=== PATIENT | male | born 1945 | race African-American/Black ===

== ENCOUNTER 2016-08-27 18:57 | Inpatient (IN) | payer MEDICARE, OTHER ==
--- NOTE | ~2016-08-27 | CN ---
Consultation Report [facility] [address] [place]. [address] NAME: EMILY NOE : [birth year] STATUS : ADM IN PAT#: [id number] AGE: 70 ADM/REG DATE : 08/27/16 MR#: [id number] REPORT SERV DATE: 08/28/16 DICTATED BY: ROSEY MERA DATE: 08/28/16 REPORT STATUS : Draft TRANSCRIBED BY: MODAlfie DATE: 08/28/16 CONSULTATION DATE OF CONSULTATION: 08/28/2016 This consultation is for Dr. Dannielle Mcarthur, and I am covering for her. HISTORY OF PRESENT ILLNESS: The patient is a 70-year-old gentleman, who presented to the hospital with melena for approximately three days, associated with nausea, but no vomiting, and abdominal pain across the upper abdomen. He has been taking Aleve for his headaches and some of this abdominal pain. He denies any trouble with dysphagia or odynophagia. He does have occasional pyrosis and indigestion. He has had nausea, but no vomiting. No hematemesis or coffee-grounds emesis. He was given 2 units of packed red blood cells in the emergency room for hemoglobin of 5.4, and that only increased his hemoglobin to 5.9. He has been getting a lot of IV fluids. 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 He has had recurrent GI bleeding in the past. He does have a history of idiopathic thrombocytopenic purpura for which he takes steroids, and rheumatoid arthritis for which he takes the nonsteroidal anti-inflammatories. He also has a history of gout, hypertension, and alcohol abuse, but he states he has not had any alcohol for the past seven days. He also has chronic kidney disease. MEDICATIONS: His medicines are as outlined on his home medicine sheet and MAR, and he is currently on a Protonix drip. ALLERGIES: HE HAS NO KNOWN MEDICAL ALLERGIES. SOCIAL HISTORY: He does not smoke cigarettes. Drinks maybe a fifth of whiskey a week, but again has not had any in the last week. FAMILY HISTORY: Noncontributory. REVIEW OF SYSTEMS: Otherwise unremarkable. PHYSICAL EXAMINATION: GENERAL: He is a well-developed, well-nourished gentleman, in no acute distress. VITAL SIGNS: His temperature is 98.0, pulse 77, respirations 23, and blood pressure is 146/73. HEENT: Exam is unremarkable. LUNGS: Clear. HEART: Regular rate and rhythm. ABDOMEN: Showed normoactive bowel sounds. Soft, with tenderness in the midepigastrium and left upper quadrant. Consultation Report [facility] [address] [place]. [address] NAME: EMILY NOE : [birth year] STATUS : ADM IN PAT#: [id number] AGE: 70 ADM/REG DATE : 08/27/16 MR#: [id number] REPORT SERV DATE: 08/28/16 DICTATED BY: ROSEY MERA DATE: 08/28/16 REPORT STATUS : Draft TRANSCRIBED BY: MICHELL DATE: 08/28/16 LABORATORY DATA: His laboratory data this morning shows a white count of 5.4, hemoglobin 5.9, hematocrit 19.1, MCV 78.0, RDW 17.8, platelet count a 114,000. His electrolytes this morning showed a sodium 143, potassium 4.3, chloride 111, CO2 21, BUN 58, creatinine 2.23. His GFR is 33, glucose 85, calcium 7.9, magnesium 1.7. Phosphorus 3.5, iron 26, which is low, iron saturation is 10% which is low, ferritin level was 10 which is also low. Folate, B12, and TSH were all normal. When he was admitted to the hospital, his white count was 10.4, with a hemoglobin of 5.4, hematocrit 17.8, his platelet count at that time was 173,000. His BUN on admission was 66 and creatinine 2.48. His GFR was 29. His liver enzymes were normal and lipase was normal. IMPRESSION: This is a 70-year-old gentleman, who has had melena for the last three days and more than likely, this is an upper GI bleed, given the upper belly pain and history of nonsteroidal anti-inflammatory agents. He does need an EGD, however, I would like to have his hemoglobin up above 6.5 at least, prior to doing any sedation. We will therefore proceed with the upper endoscopy tomorrow after he has gotten the blood, and after he is more stabilized. I have explained the risks and benefits of procedure to him and he agrees, and this will be done tomorrow by Dr. Dannielle Mcarthur. SONIA/MICHELL Rosey Mera M.D. / [id number] CC: Samson Bull M.D.
--- NOTE | ~2016-08-27 | EGD ---
EGD REPORT [facility] [address] [place] [address] NAME: BART NOE : [birth year] STATUS : ADM IN PAT#: [id number] AGE: 70 ADM/REG DATE : 08/27/16 MR#: [id number] REPORT SERV DATE: 08/29/16 DICTATED BY: BA HARDEN DATE: 08/29/16 REPORT STATUS : Draft TRANSCRIBED BY: [employer] DATE: 08/29/16 Endoscopy Center Patient Name: Bart Noe Date of : 1945 Attending MD: BA HARDEN, Procedure Date No Time: 08/29/2016 Procedure: Upper GI endoscopy Indications: Acute post hemorrhagic anemia, Melena Referring MD: Manuel Zhao III, MD, Samson HA MD Medicines: Monitored Anesthesia Care Complications: No immediate complications. Estimated blood loss: Minimal. Procedure: Pre-Anesthesia Assessment: - ASA Grade Assessment: III - A patient with severe systemic disease. After obtaining informed consent, the endoscope was passed under direct vision. Throughout the procedure, the patient's blood pressure, pulse, and oxygen saturations were monitored continuously. The GIF [id number] was introduced through the mouth, and advanced to the second part of duodenum. The upper GI endoscopy was accomplished with ease. The patient tolerated the procedure well. Findings: LA Grade B (one or more mucosal breaks greater than 5 mm, not extending between the tops of two mucosal folds) esophagitis with no bleeding was found 39 to 40 cm from the incisors. No biopsies or other specimens were collected for this exam. A small hiatus hernia was present. The Z-line was found 40 cm from the incisors. A large, fungating, partially circumferential (involving one-third of the lumen circumference) mass with no bleeding and no stigmata of recent bleeding was found in the gastric antrum, in the prepyloric region of the stomach and at the pylorus, extending into the duodenum. Biopsies were taken with a cold forceps for histology. Estimated blood loss was minimal. Multiple dispersed, small non-bleeding erosions were found in the gastric antrum. A large fungating mass coming from stomach with no bleeding was found in the duodenal bulb. Biopsies were taken with a cold forceps for histology. Estimated blood loss was minimal. The 2nd part of the duodenum was normal. Impression: - LA Grade B erosive esophagitis. No specimens collected. EGD REPORT [address] [place]. [address] NAME: BART NOE : [birth year] STATUS : ADM IN [facility]#: [id number] AGE: 70 ADM/REG DATE : 08/27/16 MR#: [id number] REPORT SERV DATE: 08/29/16 DICTATED BY: BA HARDEN DATE: 08/29/16 REPORT STATUS : Draft TRANSCRIBED BY: [email or web address] DATE: 08/29/16 - Hiatus hernia. - Z-line 40 cm from the incisors. 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 Biopsied. - Non-bleeding erosive gastropathy. - Duodenal mass. Biopsied. - Normal 2nd part of the duodenum. Recommendation: - Return patient to [facility] for [facility] care. - No aspirin, ibuprofen, naproxen, or other non-steroidal anti-inflammatory drugs. - Use Protonix (pantoprazole) 40 mg PO BID indefinitely. - Refer to an oncologist. - Await pathology results. - Clear liquid diet. Procedure Code(s): --- Professional --- 12661, Esophagogastroduodenoscopy, flexible, transoral; with biopsy, single or multiple Diagnosis Code(s): --- Professional --- K20.8, Other esophagitis D49.0, Neoplasm of unspecified behavior of digestive system K31.9, Disease of stomach and duodenum, unspecified D62, Acute posthemorrhagic anemia K92.1, Melena CPT copyright 2013 [employer]. All rights reserved. The codes documented in this report are preliminary and upon fieldwork coordinator review may be revised to meet current compliance requirements. BA HARDEN, 08/29/2016 4:54 PM This report has been signed electronically. Number of Addenda: 0 Note Initiated On: 08/29/2016 4:13 PM Scope Withdrawal Time 0 hours 0 minutes 0 seconds [address] [place] [address]
--- NOTE | ~2016-08-27 | HP ---
History And Physical [place] [id number] [facility] [place]. [address] NAME: EMILY NOE : [birth year] STATUS : ADM IN [facility]#: [id number] AGE: 70 ADM/REG DATE : 08/27/16 MR#: [id number] REPORT SERV DATE: 08/28/16 DICTATED BY: NEGRITO VILLALOBOS DATE: 08/27/16 REPORT STATUS : Draft TRANSCRIBED BY: MICHELL DATE: 08/27/16 DATE OF ADMISSION: 08/27/2016 ADDENDUM: IMPRESSION: 1. Melena. 2. Acute gastrointestinal bleeding. 3. Severe anemia secondary to blood loss requiring blood transfusion. 4. History of recurrent gastrointestinal bleeding. 5. Gastric tumor in the pre-pyloric region. 6. History of benign tumor which was followed at [place] previously, chronic nonsteroidal anti-inflammatory drug use along with steroid use for idiopathic thrombocytopenia and rheumatoid arthritis. 7. Hypertension. 8. History of alcohol abuse with delirium tremens. 9. Chronic kidney disease. 10.Gout. PLAN: We will admit Mr. Noe to the Hospitalist Service and Medical Intermediate Care Unit for close monitoring. We will type, cross, and transfuse two units of packed red blood cells today. Follow hemoglobin and hematocrit levels post transfusion and again in the morning as well. We will keep him n.p.o. for now. We will go ahead and consult Dr. Mcarthur for possible endoscopy in the morning. If he continues to bleed heavily we may have to call her in [facility] [place]. We will also start him on a Protonix infusion and start him on IV fluids for volume replacement, follow chemistry, electrolytes, and CBC in the morning. We will also control his blood pressures and watch for delirium tremens. He states he has not used alcohol heavily in the past month or two, and he has not had any in the last four days. We will also place him on SCDs for DVT prophylaxis while he is here. I have discussed the above plans with the patient. His questions were answered and he is agreeable to the above recommendations. Hospitalist Service will be following him during his stay here. /MICHELL Negrito Villalobos M.D. / [id number] CC: Samson Bull M.D.
--- NOTE | ~2016-08-27 | DS ---
Discharge Summary [facility] [address] [place]. [address] NAME: EMILY NOE : [birth year] STATUS : ADM IN [facility]#: [id number] AGE: 70 ADM/REG DATE : 08/27/16 MR#: [id number] REPORT SERV DATE: 09/01/16 DICTATED BY: Samson BULL DATE: 09/01/16 REPORT STATUS : Draft TRANSCRIBED BY: MODL DATE: 09/01/16 ADMISSION DATE: 08/27/2016 DISCHARGE DATE: 09/01/2016 DIAGNOSES AT DISCHARGE: Acute gastrointestinal bleeding, acute blood loss anemia, large hyperplastic polyp in the duodenal bulb, chronic immune thrombocytopenic purpura, chronic kidney disease stage 3. CONSULTS: Gastroenterology. PROCEDURES: EGD. BRIEF SUMMARY: A 70-year-old male patient with multiple chronic medical issues was admitted with acute GI bleeding. The patient has a history of a benign gastric mass with previous resection. The patient was seen in intermediate care with serial H and H and proton pump inhibitor therapy as a continuous infusion, seen and evaluated by Gastroenterology. The patient ultimately underwent EGD. No evidence of ulcers were noted. He had some gastritis and some esophagitis but again, there was demonstration of the distal mass in the duodenal bulb. This was biopsied. The patient tolerated the procedure well. Pathology from this report is completely benign. In fact, pathologist reviewed previous pathology on this same lesion, all of which showed hyperplastic polyp. Decision was made, after reviewing pathology and interaction gastroenterology, the patient could safely be discharged home. A strong recommendation to discontinue nonsteroidal therapy and to follow up closely as an outpatient. If the patient develops further bleeding or this lesion continues to grow, though it is benign, he may still require surgical resection. The patient will be continued on Protonix 40 mg b.i.d., and he will have a prescription for Lortab 5 one q.4 hours p.r.n. in hopes of treating his arthritis pain without NSAID therapy. Otherwise, he will continue his current medicines and follow up with his primary care provider in two weeks. Significant labs at discharge showed potassium of 3.9, sodium of 138, BUN 45, creatinine of 2.63, white count is 14.4, hemoglobin is 8.1. [facility]/[place] Samson Bull M.D. / [id number] CC: Samson Bull M.D.
--- NOTE | ~2016-08-27 | HP ---
History And Physical [place] [id number] [facility] [place]. [address] NAME: EMILY NOE : [birth year] STATUS : ADM IN PAT#: [id number] AGE: 70 ADM/REG DATE : 08/27/16 MR#: [id number] REPORT SERV DATE: 08/28/16 DICTATED BY: NEGRITO VILLALOBOS DATE: 08/27/16 REPORT STATUS : Draft TRANSCRIBED BY: MODL DATE: 08/27/16 DATE OF ADMISSION: 08/27/2016 CHIEF COMPLAINT: Passing blood per rectum. HISTORY OF PRESENT ILLNESS: This is a 70-year-old male with a past medical history of gastric tumor in the pyloric region, history of recurrent GI bleeds in the past and seen by Dr. Dannielle Mcarthur, who presents to the emergency room at [facility] with the above-mentioned complaint. History is obtained from the patient, and reviewing data available on the [employer] system. According to Mr. Noe, he started having or seeing some black tarry stools yesterday in the morning, but he said it was very scant. Today, in the morning when he stood up to go to another room in his house it suddenly broke loose he passed quite a large volume of black tarry stools. He knew immediately he was bleeding and decided to come to the emergency room to be evaluated. In the emergency room, initial evaluation revealed a hemoglobin of 5.4 with a hematocrit of 17.8. He continued to have melanotic stools here and the ER providers had called Dr. Mcarthur, who had advised admission to the IMCU. At the time of my evaluation, he denied any chest pain, palpitations, or orthopnea. He had no cough, hemoptysis, night sweats, or weight loss. He has not had any falls or the loss of consciousness recently. No history of fevers or chills. No history of abdominal pain, nausea, or vomiting. He denied any hematemesis or hematuria. No other history of recent travel or exposures other than those mentioned above. PAST MEDICAL HISTORY: Significant for history of a gastric tumor in pre-pyloric region, history of benign gastric tumor followed at [place] previously, history of recurrent GI bleeding seen by Dr. Dannielle Mcarthur. He has chronic NSAID use and steroid use for his idiopathic thrombocytopenic purpura and rheumatoid arthritis. He also has a history of gout, hypertension, alcohol use with history of DTs in the past, and chronic kidney disease. SOCIAL HISTORY: He does not smoke, used to drink heavily, but states he has almost quit, and has not had a drink in the last four days. He denied any other recreational drugs. 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 FAMILY HISTORY: Noncontributory. MEDICATIONS: His medications at home were reviewed by me in the chart today and reordered by me. REVIEW OF SYSTEMS: As in history of present illness. All other systems were reviewed in detail and are quite unremarkable. History And Physical [address] [address] NAME: EMILY NOE : 45 STATUS : ADM IN [facility]#: [id number] AGE: 70 ADM/REG DATE : 08/27/16 MR#: [id number] REPORT SERV DATE: 08/28/16 DICTATED BY: NEGRITO VILLALOBOS DATE: 08/27/16 REPORT STATUS : Draft TRANSCRIBED BY: MICHELL DATE: 08/27/16 PHYSICAL EXAMINATION: GENERAL: This is a pleasant 70-year-old, not in any acute distress. HEENT: Head is atraumatic and normocephalic. He is alert, awake, oriented to time, place, and person. His pupils are equal, reacting to light and accommodating. External ocular muscles are intact. Membranes are moist and pink. Sclerae are nonicteric. NECK: Supple with no jugular venous distention, lymphadenopathy, or thyromegaly. LUNGS: Clear to auscultation with no wheezes, rubs, or crackles. HEART: Heart sounds were regular with no murmurs, rubs, or gallops. ABDOMEN: Soft and nontender. Bowel sounds are present. EXTREMITIES: No cyanosis, clubbing, or edema. NEUROLOGIC: Grossly intact. No focal sensory or motor deficits. Higher functions appeared intact. Gait was not examined. VITAL SIGNS: Today showed a temperature of 97.8, pulse 112, respirations 18 a minute, blood pressure was 134/70, and oxygen saturations were 98% breathing 2 L via nasal cannula. LABORATORY DATA: Reviewed on the [employer] system showed a sodium of 141, potassium 4.4, chloride 106, CO2 of 23, BUN was 66 with a creatinine of 2.48 today which has been around his baseline. His glucose was 119. His alkaline phosphatase was 61. ALT and AST were within normal limits. Lipase was 118. [place] [address], hemoglobin was 5.4, hematocrit 17.8 this is down from his usual 7 and 22 to 23. His platelet count was 173,000. His prothrombin time was 15 with an INR of 1.2 today. Urinalysis was not performed today. There was no imaging done in the ER today, and an EKG done in the emergency room was reviewed and interpreted by me. There is normal sinus rhythm with a rate of [address]-T changes. MR/MICHELL Negrito Villalobos M.D. / [id number] CC: Samson Bull M.D.
[~2016-08-27 18:57] MED LIST: APRES25 PO; ATV.5 PO; B1100 PO; CYANO1000T PO; FERROUS SULF325 M1 PO; HYDROCHLOROT25 MG PO; IFEREX 151; IRON325 MG PO; MAGOX4 PO; MULTIPLE VIT; MULTIVIT/MIN PO; NORCO1 TA1 PO; P10 PO; P20 PO; PRILOSEC OTC20 MG; PROAIR HFA INH; PROTONIX PO; SUCR PO; T PO; TUMSROLL PO; VITAMIN B-121000 MC1 SL; Z100 PO; [UNRECOGNIZED DRUG - OTHER] OR
[2016-08-27 19:45] LABS: BASOPHILS 0.1 %; BASOPHILS ABSOLUTE 0.01 10/3/uL (0.0-0.16); EOSINOPHILS 0.1 %; EOSINOPHILS ABSOLUTE 0.01 10/3/uL (0.0-0.53); ER CBC TAT 0 Hrs 03 Mins; IMMATURE GRANULOCYTES 0.3 %; IMMATURE GRANULOCYTES ABSOLUTE 0.03 10/3/uL (0.0-0.11); LYMPHOCYTES 7.6 %; LYMPHOCYTES ABSOLUTE 0.79 10/3/uL (0.67-4.30); MEAN CORPUS HGB CONC 30.3 g/dL (32.0-36.0); MEAN CORPUSCULAR HEMOGLOB 23.2 pg (26.0-34.0); MEAN PLATELET VOLUME 9.1 fL (9.2-13.0); MONOCYTES 7.1 %; MONOCYTES ABSOLUTE 0.74 10/3/uL (0.21-1.20); NEUTROPHILS 84.8 %; NEUTROPHILS ABSOLUTE 8.81 10/3/uL (2.02-8.40); PLATELET COUNT 173 10/3/uL (150-400); RBC DISTRIBUTION WIDTH 17.9 % (12.0-16.0); WHITE BLOOD CELLS 10.4 10/3/uL (4.5-10.5)
[2016-08-27] MEDS ORDERED: Z100 PO (19:46)
[2016-08-27] MEDS ORDERED: ALEVE220 MG PO (19:46)
[2016-08-27 19:47] LABS: HEMOGLOBIN 5.4 g/dL (13.6-17.8); RED CELL COUNT 2.33 10/6/uL (4.7-6.1)
[2016-08-27 19:48] LABS: HEMATOCRIT 17.8 % (40.0-51.0); MANUAL DIFF NO %; MEAN CORPUSCULAR VOLUME 76.4 fL (80-100)
[2016-08-27 19:56] LABS: INTERNATIONAL NORMAL RATI 1.2 UNITS (-); PARTIAL THROMBO TIME 28.6 SEC (22.5-37.2)
[2016-08-27 20:05] LABS: A/G RATIO 0.8 (0.7-1.9); ALKALINE PHOSPHATASE 61 U/L (45-117); BUN (BLOOD UREA NITROGEN) 66 MG/DL (6-23); CALCIUM, SERUM 8.5 MG/DL (8.5-10.4); CHLORIDE, SERUM 106 MMOL/L (96-112); CO2 (CARBON DIOXIDE) 23 MMOL/L (24-34); CREATININE 2.48 MG/DL (0.70-1.30); GFR AFRICAN AMERICAN 29 ML/MIN (>=60); GFR NON AFRICAN AMERICAN 25 ML/MIN (>=60); GLOBULIN 3.8 G/DL (2.5-4.1); GLUCOSE, SERUM 119 MG/DL (60-99); POTASSIUM, SERUM 4.4 MMOL/L (3.5-5.3); SGOT(AST) 32 U/L (5-40); SGPT(ALT) 21 U/L (5-65); SODIUM, SERUM 141 MMOL/L (135-148); TOTAL BILIRUBIN 0.5 MG/DL (0-1.2); TOTAL PROTEIN 6.8 G/DL (6.0-8.5)
[2016-08-28 08:06] LABS: BASOPHILS 0.2 %; BASOPHILS ABSOLUTE 0.01 10/3/uL (0.0-0.16); EOSINOPHILS 0.6 %; EOSINOPHILS ABSOLUTE 0.03 10/3/uL (0.0-0.53); IMMATURE GRANULOCYTES 0.2 %; IMMATURE GRANULOCYTES ABSOLUTE 0.01 10/3/uL (0.0-0.11); LYMPHOCYTES 18.2 %; LYMPHOCYTES ABSOLUTE 0.98 10/3/uL (0.67-4.30); MEAN CORPUS HGB CONC 30.9 g/dL (32.0-36.0); MEAN CORPUSCULAR HEMOGLOB 24.1 pg (26.0-34.0); MEAN PLATELET VOLUME 8.8 fL (9.2-13.0); MONOCYTES 10.4 %; MONOCYTES ABSOLUTE 0.56 10/3/uL (0.21-1.20); NEUTROPHILS 70.4 %; NEUTROPHILS ABSOLUTE 3.79 10/3/uL (2.02-8.40); RBC DISTRIBUTION WIDTH 17.8 % (12.0-16.0); RED CELL COUNT 2.45 10/6/uL (4.7-6.1)
[2016-08-28 08:07] LABS: HEMATOCRIT 19.1 % (40.0-51.0); HEMOGLOBIN 5.9 g/dL (13.6-17.8); PLATELET COUNT 114 10/3/uL (150-400); WHITE BLOOD CELLS 5.4 10/3/uL (4.5-10.5)
[2016-08-28 08:09] LABS: MANUAL DIFF NO %
[2016-08-28 08:52] LABS: CALCIUM, SERUM 7.9 MG/DL (8.5-10.4); CHLORIDE, SERUM 111 MMOL/L (96-112); CO2 (CARBON DIOXIDE) 21 MMOL/L (24-34); CREATININE 2.23 MG/DL (0.70-1.30); GFR AFRICAN AMERICAN 33 ML/MIN (>=60); GFR NON AFRICAN AMERICAN 29 ML/MIN (>=60); PHOSPHORUS, SERUM 3.5 MG/DL (2.5-4.5); POTASSIUM, SERUM 4.3 MMOL/L (3.5-5.3); SODIUM, SERUM 143 MMOL/L (135-148)
[2016-08-28 08:53] LABS: BUN (BLOOD UREA NITROGEN) 58 MG/DL (6-23); GLUCOSE, SERUM 85 MG/DL (60-99)
[2016-08-28 10:56] LABS: % IRON SAT 10 % (20-50); FERRITIN 10 NG/ML (26-388); IRON BINDING CAPACITY 266 MCG/DL (250-450); IRON, SERUM 26 MCG/DL (35-150)
[2016-08-28 10:57] LABS: FOLATE 10.7 NG/ML (>5.2)
[2016-08-28 11:52] LABS: ASCORBIC ACID (UR NOT ORDER) NEG (NEG); BILIRUBIN, URINE NEGATIVE (NEG); KETONE, URINE NEGATIVE (NEG); LEUKOCYTE ESTERASE(NOT OR NEG (NEG); WBC (NOT ORDERED) (RFLEX) < 1 (0-5)
[2016-08-28 18:34] LABS: HEMATOCRIT 26.5 % (40.0-51.0); HEMOGLOBIN 8.7 g/dL (13.6-17.8)
[2016-08-29 01:09] LABS: HEMATOCRIT 26.3 % (40.0-51.0); HEMATOCRIT 26.4 % (40.0-51.0); HEMOGLOBIN 8.6 g/dL (13.6-17.8)
[2016-08-29 06:41] LABS: BASOPHILS 0.2 %; BASOPHILS ABSOLUTE 0.01 10/3/uL (0.0-0.16); EOSINOPHILS 0.9 %; EOSINOPHILS ABSOLUTE 0.05 10/3/uL (0.0-0.53); HEMATOCRIT 25.5 % (40.0-51.0); HEMOGLOBIN 8.4 g/dL (13.6-17.8); IMMATURE GRANULOCYTES 0.4 %; IMMATURE GRANULOCYTES ABSOLUTE 0.02 10/3/uL (0.0-0.11); LYMPHOCYTES 9.1 %; LYMPHOCYTES ABSOLUTE 0.48 10/3/uL (0.67-4.30); MEAN CORPUSCULAR HEMOGLOB 26.5 pg (26.0-34.0); MEAN PLATELET VOLUME 8.5 fL (9.2-13.0); MONOCYTES 8.3 %; MONOCYTES ABSOLUTE 0.44 10/3/uL (0.21-1.20); NEUTROPHILS 81.1 %; PLATELET COUNT 96 10/3/uL (150-400); RBC DISTRIBUTION WIDTH 17.2 % (12.0-16.0); WHITE BLOOD CELLS 5.3 10/3/uL (4.5-10.5)
[2016-08-29 06:42] LABS: MANUAL DIFF NO %; MEAN CORPUS HGB CONC 32.9 g/dL (32.0-36.0); MEAN CORPUSCULAR VOLUME 80.4 fL (80-100); RED CELL COUNT 3.17 10/6/uL (4.7-6.1)
[2016-08-29 06:57] LABS: CALCIUM, SERUM 8.4 MG/DL (8.5-10.4); CHLORIDE, SERUM 109 MMOL/L (96-112); CO2 (CARBON DIOXIDE) 22 MMOL/L (24-34); CREATININE 2.35 MG/DL (0.70-1.30); GFR AFRICAN AMERICAN 31 ML/MIN (>=60); GFR NON AFRICAN AMERICAN 27 ML/MIN (>=60); POTASSIUM, SERUM 3.6 MMOL/L (3.5-5.3); SODIUM, SERUM 141 MMOL/L (135-148)
[2016-08-29 06:58] LABS: BUN (BLOOD UREA NITROGEN) 45 MG/DL (6-23); GLUCOSE, SERUM 107 MG/DL (60-99)
[2016-08-29 10:52] LABS: HEMATOCRIT 25.5 % (40.0-51.0); HEMOGLOBIN 8.3 g/dL (13.6-17.8)
[2016-08-29 20:39] LABS: HEMATOCRIT 27.3 % (40.0-51.0); HEMOGLOBIN 8.6 g/dL (13.6-17.8)
[2016-08-30 00:48] LABS: HEMATOCRIT 26.7 % (40.0-51.0); HEMOGLOBIN 8.5 g/dL (13.6-17.8)
[2016-08-30 06:57] LABS: BASOPHILS 0.1 %; BASOPHILS ABSOLUTE 0.01 10/3/uL (0.0-0.16); EOSINOPHILS 0.1 %; EOSINOPHILS ABSOLUTE 0.01 10/3/uL (0.0-0.53); HEMOGLOBIN 8.7 g/dL (13.6-17.8); IMMATURE GRANULOCYTES 0.4 %; IMMATURE GRANULOCYTES ABSOLUTE 0.03 10/3/uL (0.0-0.11); LYMPHOCYTES 8.1 %; LYMPHOCYTES ABSOLUTE 0.69 10/3/uL (0.67-4.30); MEAN CORPUS HGB CONC 32.2 g/dL (32.0-36.0); MEAN CORPUSCULAR HEMOGLOB 26.5 pg (26.0-34.0); MEAN CORPUSCULAR VOLUME 82.3 fL (80-100); MEAN PLATELET VOLUME 9.9 fL (9.2-13.0); MONOCYTES 9.6 %; MONOCYTES ABSOLUTE 0.82 10/3/uL (0.21-1.20); NEUTROPHILS 81.7 %; NEUTROPHILS ABSOLUTE 6.98 10/3/uL (2.02-8.40); PLATELET COUNT 116 10/3/uL (150-400); RED CELL COUNT 3.28 10/6/uL (4.7-6.1)
[2016-08-30 06:59] LABS: MANUAL DIFF NO %; WHITE BLOOD CELLS 8.5 10/3/uL (4.5-10.5)
[2016-08-30 07:12] LABS: BUN (BLOOD UREA NITROGEN) 32 MG/DL (6-23); CALCIUM, SERUM 8.1 MG/DL (8.5-10.4); CHLORIDE, SERUM 108 MMOL/L (96-112); CO2 (CARBON DIOXIDE) 22 MMOL/L (24-34); GFR AFRICAN AMERICAN 36 ML/MIN (>=60); GFR NON AFRICAN AMERICAN 31 ML/MIN (>=60); GLUCOSE, SERUM 113 MG/DL (60-99); POTASSIUM, SERUM 3.5 MMOL/L (3.5-5.3); SODIUM, SERUM 140 MMOL/L (135-148)
[2016-08-30 14:30] LABS: WBC (NOT ORDERED) (RFLEX) 0 (0-5)
[2016-08-30 15:13] LABS: ASCORBIC ACID (UR NOT ORDER) NEG (NEG); BILIRUBIN, URINE NEGATIVE (NEG); KETONE, URINE NEGATIVE (NEG); LEUKOCYTE ESTERASE(NOT OR NEG (NEG)
[2016-08-31 03:49] LABS: BASOPHILS 0 %; EOSINOPHILS 0 %; HEMATOCRIT 27.1 % (40.0-51.0); HEMOGLOBIN 8.8 g/dL (13.6-17.8); IMMATURE GRANULOCYTES 0.3 %; IMMATURE GRANULOCYTES ABSOLUTE 0.03 10/3/uL (0.0-0.11); LYMPHOCYTES 1.9 %; LYMPHOCYTES ABSOLUTE 0.22 10/3/uL (0.67-4.30); MEAN CORPUS HGB CONC 32.5 g/dL (32.0-36.0); MEAN CORPUSCULAR HEMOGLOB 26.4 pg (26.0-34.0); MEAN CORPUSCULAR VOLUME 81.4 fL (80-100); MEAN PLATELET VOLUME 9.6 fL (9.2-13.0); MONOCYTES 3.3 %; MONOCYTES ABSOLUTE 0.38 10/3/uL (0.21-1.20); NEUTROPHILS 94.5 %; NEUTROPHILS ABSOLUTE 10.97 10/3/uL (2.02-8.40); PLATELET COUNT 122 10/3/uL (150-400); RBC DISTRIBUTION WIDTH 18.1 % (12.0-16.0); RED CELL COUNT 3.33 10/6/uL (4.7-6.1); WHITE BLOOD CELLS 11.6 10/3/uL (4.5-10.5)
[2016-08-31 03:50] LABS: MANUAL DIFF NO %
[2016-08-31 04:09] LABS: BUN (BLOOD UREA NITROGEN) 33 MG/DL (6-23); CALCIUM, SERUM 8.2 MG/DL (8.5-10.4); CHLORIDE, SERUM 104 MMOL/L (96-112); CO2 (CARBON DIOXIDE) 22 MMOL/L (24-34); CREATININE 2.48 MG/DL (0.70-1.30); GFR AFRICAN AMERICAN 29 ML/MIN (>=60); GFR NON AFRICAN AMERICAN 25 ML/MIN (>=60); PHOSPHORUS, SERUM 3.5 MG/DL (2.5-4.5); POTASSIUM, SERUM 3.8 MMOL/L (3.5-5.3); SODIUM, SERUM 138 MMOL/L (135-148)
[2016-08-31 04:12] LABS: GLUCOSE, SERUM 177 MG/DL (60-99)
[2016-09-01 05:09] LABS: BASOPHILS 0 %; EOSINOPHILS 0 %; HEMATOCRIT 24.8 % (40.0-51.0); HEMOGLOBIN 8.1 g/dL (13.6-17.8); IMMATURE GRANULOCYTES 0.2 %; IMMATURE GRANULOCYTES ABSOLUTE 0.03 10/3/uL (0.0-0.11); LYMPHOCYTES 4.1 %; LYMPHOCYTES ABSOLUTE 0.59 10/3/uL (0.67-4.30); MEAN CORPUS HGB CONC 32.7 g/dL (32.0-36.0); MEAN CORPUSCULAR HEMOGLOB 25.9 pg (26.0-34.0); MEAN CORPUSCULAR VOLUME 79.2 fL (80-100); MEAN PLATELET VOLUME 9.7 fL (9.2-13.0); MONOCYTES 5.6 %; NEUTROPHILS 90.1 %; NEUTROPHILS ABSOLUTE 12.96 10/3/uL (2.02-8.40); RBC DISTRIBUTION WIDTH 18.3 % (12.0-16.0); RED CELL COUNT 3.13 10/6/uL (4.7-6.1); WHITE BLOOD CELLS 14.4 10/3/uL (4.5-10.5)
[2016-09-01 05:15] LABS: PLATELET COUNT 165 10/3/uL (150-400)
[2016-09-01 05:16] LABS: MANUAL DIFF NO %
[2016-09-01 05:36] LABS: CHLORIDE, SERUM 103 MMOL/L (96-112); CO2 (CARBON DIOXIDE) 23 MMOL/L (24-34); CREATININE 2.63 MG/DL (0.70-1.30); GFR AFRICAN AMERICAN 27 ML/MIN (>=60); GFR NON AFRICAN AMERICAN 24 ML/MIN (>=60); POTASSIUM, SERUM 3.9 MMOL/L (3.5-5.3); SODIUM, SERUM 138 MMOL/L (135-148)
[2016-09-01 05:38] LABS: BUN (BLOOD UREA NITROGEN) 45 MG/DL (6-23); GLUCOSE, SERUM 123 MG/DL (60-99)
[2016-09-01] MEDS ORDERED: NORCO1 TA1 PO (15:24)
[2016-09-01] MEDS ORDERED: PROTONIX PO (15:25)
[2017-03-22] MEDS ORDERED: 8 HOUR650 MG PO (23:01)
[2017-03-24] MEDS ORDERED: NORV10 PO (16:29)
[2017-03-24] MEDS ORDERED: B1100 PO (16:30)
== END 2016-09-01 19:25 | disposition home or self-care (01) | DRG 378 ==
LOC: ER 18:57 → IMCU 21:35 → 7NO 08-30 18:43
PROVIDERS: Emergency Medicine; Internal Medicine; Internal Medicine Gastroenterology; Internal Medicine Pulmonary Disease
PROC: 0DB98ZX Excision of Duodenum, Via Natural or Artificial Opening Endoscopic, Diagnostic (ICD-10-PCS; principal; 2016-08-27)
PROC: 30233N1 Transfusion of Nonautologous Red Blood Cells into Peripheral Vein, Percutaneous Approach (ICD-10-PCS; 2016-08-27)
PROC: 0DB68ZX Excision of Stomach, Via Natural or Artificial Opening Endoscopic, Diagnostic (ICD-10-PCS; 2016-08-27)
DX: K92.2 Gastrointestinal hemorrhage, unspecified (principal); N17.9 Acute kidney failure, unspecified; D69.3 Immune thrombocytopenic purpura; N18.3 Chronic kidney disease, stage 3 (moderate); D62 Acute posthemorrhagic anemia; I12.9 Hypertensive chronic kidney disease with stage 1 through stage 4 chronic kidney disease, or unspecified chronic kidney disease; K29.70 Gastritis, unspecified, without bleeding; D13.1 Benign neoplasm of stomach; Z23 Encounter for immunization; K20.9 Esophagitis, unspecified; K44.9 Diaphragmatic hernia without obstruction or gangrene; K31.7 Polyp of stomach and duodenum; M10.9 Gout, unspecified; F10.10 Alcohol abuse, uncomplicated
CPT/HCPCS: 36415; 36430; 71010; 80048; 80053; 81001; 82607; 82728; 82746; 83540; 83550; 83690; 83735; 84100; 84443; 84550; 85014; 85018; 85025; 85610; 85730; 86850; 86900; 86901; 86920; 87641; 88305; 90662; 93005; 94640; 97162-GP; 99291; A9270-GY; C9113; G0008; G8978-CK-GP; G8979-CJ-GP; J1980; J2405; J2920; J3411; P9016

== ENCOUNTER 2016-12-10 15:19 | Inpatient (IN) | payer MEDICARE, OTHER ==
--- NOTE | ~2016-12-10 | CN ---
Consultation Report [facility] [address] [place]. [address] NAME: EMILY NOE : 45 STATUS : ADM IN [facility]#: [id number] AGE: 70 ADM/REG DATE : 12/10/16 MR#: [id number] REPORT SERV DATE: 12/12/16 DICTATED BY: NICKOLAS VIERA DATE: 12/11/16 REPORT STATUS : Draft TRANSCRIBED BY: MODL DATE: 12/11/16 CONSULTATION DATE OF CONSULTATION: 12/11/2016 HISTORY OF PRESENT ILLNESS: This is a 70-year-old white male, is followed by Dr. Mcarthur, was admitted with GI bleeding, manifested by dark stools, some nausea, vomiting, and some brown liquid; history of PUD; has had a history of a gastric mass resected at [place] several years ago; had apparently recurrent gastric mass as well. Has had recent endoscopies by Dr. Mcarthur. He has intermittent epigastric discomfort. He had been off his PPI, but was taking some Carafate, has had no further black stools since admission. He has a history of ITP. He is followed by Dr. Zhao. Platelet count 18847 this admission. Hemoglobin initially 12.6, hematocrit 10.3, white count of 5000. SOCIAL HISTORY: Positive ETOH. There is a history of some abuse. Negative for nicotine. PAST MEDICAL HISTORY: History of gout, rheumatoid arthritis. History of [place]. Past history of colon polyps. He has had several toes amputated in a lawn mowing accident as a teenager. History of hypertension. He has had minimal weight loss. PHYSICAL EXAMINATION: GENERAL: Well developed, well nourished white male, alert and oriented x3. HEENT: Anicteric. NECK: Negative. CHEST: Clear to auscultation and percussion. HEART: Regular rhythm. No murmur or gallop. ABDOMEN: Soft, minimal tenderness in the epigastric. Bowel sounds present. EXTREMITIES/NEUROLOGIC: Pertinent for toe amputation. ASSESSMENT: 1. Gastrointestinal bleed, dark stools, nausea, and vomiting, history of peptic ulcer disease, history of gastric mass, history of gastric benign tumor resected in the past as well, hemoglobin 12.6, and now 10.3. 2. Idiopathic thrombocytopenic purpura. 3. Eight history of ETOH abuse. 4. History of nonalcoholic steatohepatitis. 5. Hypertension. 6. Gout. 7. Rheumatoid arthritis. SUGGESTIIONS: 1. Continue PPI infusion. 2. Follow up H and H. 3. We will schedule for EGD. Consultation Report [place] [id number] [address] NAME: EMILY NOE : [birth year] STATUS : ADM IN PAT#: [id number] AGE: 70 ADM/REG DATE : 12/10/16 MR#: [id number] REPORT SERV DATE: 12/12/16 DICTATED BY: NICKOLAS VIERA DATE: 12/11/16 REPORT STATUS : Draft TRANSCRIBED BY: MICHELL DATE: 12/11/16 DC/MICHELL Nickolas Viera M.D. / [id number] CC: MD Dannielle Freed MD
--- NOTE | ~2016-12-10 | HP ---
History And Physical [place] [id number] [facility] [place]. [address] NAME: EMILY NOE : 45 STATUS : ADM IN PAT#: [id number] AGE: 70 ADM/REG DATE : 12/10/16 MR#: [id number] REPORT SERV DATE: 12/10/16 DICTATED BY: ROSEY SORIANO DATE: 12/10/16 REPORT STATUS : Draft TRANSCRIBED BY: MODL DATE: 12/10/16 DATE OF ADMISSION: 12/10/2016 IDENTIFYING DATA: A 70-year-old male whose PCP [facility], but he is in the process of switching now; GI, Dr. 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 CHIEF COMPLAINT: Black stools, nausea. HISTORY OF PRESENT ILLNESS: This history of present illness is obtained by talking with the patient as well as with the ER physician, Dr. Sy, and I reviewed [email or web address] and the current ER chart. [employer] is not working at the moment. The patient has multiple previous hospitalizations for GI bleeds. 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 He reportedly had portion of it removed surgically at [place] about eight years ago. He has had multiple GI bleeds. The last time he was here with a GI bleed was 08/27/2016 through 09/01/2016. He had an endoscopy at that time with Dr. Dannielle Mcarthur on 08/29/2016, which showed esophagitis, small hiatal hernia, a large fungating partially circumferential mass with no bleeding in the gastric antrum and the pre- pyloric region of the stomach and the pylorus extending into the duodenal. Biopsies were taken. No specific diagnosis. It just showed fragments of gastric and duodenal mucosa with focal ulceration, chronic duodenitis, and hyperplastic-regenerative changes. No dysplasia. No malignancy was seen. The patient states that he ran out of samples of Protonix. He told the ER physician he did not get it filled because of cost. He tells me he did not even have a prescription for it. He states he has had about two to three days of black colored stool, thick and tarry. Yesterday with epigastric pain, nausea, vomiting. No blood appearance of red or black in the emesis. He came to the ER because of this, was found to have black stools, and referred to us for inpatient care. REVIEW OF SYSTEMS: He states subjectively he had some chills and fever. He has sore throat after emesis, mild shortness of breath, occasional urinary hesitancy. He has nocturia four times per night. He has decreased appetite. He has no chest pain, dysuria, rash, weight change, or falls. PAST MEDICAL HISTORY: No known drug allergies. He denies any history of diabetes, asthma, COPD, heart disease, stroke, seizure, biliary tract disease, thyroid disease, cancer, or sleep apnea. He has known ITP, followed by Dr. Zhao, has a history of alcoholism, and when he came here on 08/27/2016, he indicated at that time that he had discontinued alcohol, however, he has resumed it apparently because he tells me the same story that he just cut back. In the chart, it says he had previous DTs, he denies that, he states he just got shakes. 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 [address] NAME: EMILY NOE : 45 STATUS : ADM IN [facility]#: [id number] AGE: 70 ADM/REG DATE : 12/10/16 MR#: [id number] REPORT SERV DATE: 12/10/16 DICTATED BY: ROSEY SORIANO DATE: 12/10/16 REPORT STATUS : Draft TRANSCRIBED BY: MODAlfie DATE: 12/10/16 arthritis. He apparently has been on allopurinol for years. Chart says he has a history of nonalcoholic steatohepatitis. He states he had a liver biopsy about five years ago. He thinks it came back "okay." He has a history of colon polyps, hyperlipidemia, and hypertension. HOME MEDICATIONS: Tylenol p.r.n., allopurinol 100 mg daily, [place] 5/325 q.4 h. p.r.n. mild pain, Carafate 1 g t.i.d. p.r.n. 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 Has had a circumcision, partial gastrectomy, reportedly at [place] about eight years ago. SOCIAL HISTORY: He states he is a bachelor. He states he drinks about a fifth of vodka every four days. He states he used to be heavier in the past, when I asked him when was the past, he states a few months ago. He quit smoking in 1986. 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 He walks with a cane or a walker. FAMILY HISTORY: Mother reportedly with cancer, he is not sure if it was stomach or esophagus. Dad had a stroke. Two sisters with cancer, one involving larynx, one involving the tongue. Two brothers with cancer, one involving lung, one involving liver. DIAGNOSTIC DATA: Acute abdominal series reveals chronic elevation of the right hemidiaphragm that appear stable. The lung appears to be clear. Cardiac silhouette is normal. The abdominal series reveals normal bowel gas pattern per my interpretation. Sodium 141, potassium 4.3, chloride 103, CO2 is 22, anion gap is 16. BUN is 28, creatinine 1.67, and by comparison, his creatinine was 2.63 on 09/01/2016. His glucose is 84. His last uric acid that I see in our system was 10.5 on 08/31/2016. His total protein 8.8, albumin 3.4, globulin 5.4. White count is 8.1, hemoglobin 12.5, platelets of 119,000, by comparison, they were 165,000 on 09/01/2016. Today's pro-time is 13.9, INR 1.1, PTT is 30.8. PHYSICAL EXAMINATION: VITAL SIGNS: Temperature 98, pulse 102, respirations 20, blood pressure 160/92, O2 saturation is 97% on room air. GENERAL: Well-developed, older male, who appears at this time in no acute distress. HEENT: Head is atraumatic. Pupils are equal, round, and reactive to light. Extraocular motions are intact. No scleral icterus noted. Ear canals and TMs unremarkable with normal hearing bilaterally. Nose, noninflamed externally, septum midline, nares patent. Mouth, moist. Good gag. No redness of the throat, gums, or lips. NECK: Supple. No lymph node or thyroid enlargement. The carotids have good pulses. No bruits. LUNGS: Clear. Good air flow. No wheezes. No rhonchi. Normal respiratory effort. HEART: Regular rate and rhythm without murmur, gallop, click, or rub. ABDOMEN: Bowel sounds positive. Soft, nondistended, mildly tender in the epigastric area. No mass. No rebound. No bruits. 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 He has chronic deformity of multiple of his fingers. He has 2+ bilateral ankle edema which he states is quite chronic. No actively inflamed skin. History And Physical [address] [address] NAME: EMILY NOE : 45 STATUS : ADM IN [facility]#: [id number] AGE: 70 ADM/REG DATE : 12/10/16 MR#: [id number] REPORT SERV DATE: 12/10/16 DICTATED BY: ROSEY SORIANO DATE: 12/10/16 REPORT STATUS : Draft TRANSCRIBED BY: MICHELL DATE: 12/10/16 NEUROLOGIC: He is alert, oriented, and cooperative with grossly normal mentation as well as speech. Cranial nerves 2 through 12. No Babinski. No clonus noted. ASSESSMENT: 1. Melena that most likely represents recurrent peptic ulcer and/or related to bleeding from this chronic mass that is poorly characterized in the past as the patient has come off his proton pump inhibitor again. 2. Ongoing alcohol abuse. 3. Abdominal pain probably due to his mass and ulcer. 4. History of idiopathic thrombocytopenic purpura. 5. Stage 3-4 chronic kidney disease. 6. Severe tophaceous gout with a history of rheumatoid arthritis. 7. Chart history of nonalcoholic steatohepatitis. 8. Hypertension. 9. History of colon polyps. PLAN: 1. Admit to Cardiac telemetry. 2. GI has been contacted by the ER. The ER Dr. Sy told me he spoke with GI Dr. Schulz, covering for Dr. Mcarthur, and he wants a Protonix drip which has been started. We will follow up his hemoglobins. We will use a CIWA protocol. We will ask case management to see him about the cost of his proton pump inhibitor and if he is looking for a new PCP. LESIA/MICHELL Rosey Soriano M.D. / [id number] CC: MD Manuel Freed III, M.D. Camille Sommer, MD Melinda J. Garcia-Rosell, MD
--- NOTE | ~2016-12-10 | EGD ---
EGD REPORT [facility] [address] [address] NAME: BART NOE : 45 STATUS : ADM IN PAT#: [id number] AGE: 70 ADM/REG DATE : 12/10/16 MR#: [id number] REPORT SERV DATE: 12/12/16 DICTATED BY: BA HARDEN DATE: 12/12/16 REPORT STATUS : Draft TRANSCRIBED BY: [employer] DATE: 12/12/16 Endoscopy Center Patient Name: Bart Noe Date of : 1945 Attending MD: BA HARDEN, Procedure Date No Time: 12/12/2016 Procedure: Upper GI endoscopy Indications: Acute post hemorrhagic anemia, Melena Medicines: Propofol per Anesthesia Complications: No immediate complications. Estimated blood loss: None. Procedure: Pre-Anesthesia Assessment: - ASA Grade Assessment: III - A patient with severe systemic disease. After obtaining informed consent, the endoscope was passed under direct vision. Throughout the procedure, the patient's blood pressure, pulse, and oxygen saturations were monitored continuously. The GIF [id number] was introduced through the mouth, and advanced to the second part of duodenum. The upper GI endoscopy was accomplished with ease. The patient tolerated the procedure well. Findings: LA Grade B (one or more mucosal breaks greater than 5 mm, not extending between the tops of two mucosal folds) esophagitis with no bleeding was found 40 to 41 cm from the incisors. A small hiatus hernia was present. The Z-line was found 41 cm from the incisors. Moderate inflammation characterized by congestion (edema), erythema, friability and shallow ulcerations was found in the gastric body and in the gastric antrum. No biopsies or other specimens were collected for this exam. Four non-bleeding superficial gastric ulcers with 2 being clean-based, one had pigmented spot and the other had scant fresh blood were found in the gastric antrum. The largest lesion was 5 mm in largest dimension. Coagulation for hemostasis using bipolar probe was successful. Moderate inflammation characterized by congestion (edema), erythema and friability was found in the duodenal bulb and in the second part of the duodenum. Biopsies were taken with a cold forceps for histology. Impression: - LA Grade B reflux esophagitis. - Hiatus hernia. - Z-line 41 cm from the incisors. - Gastritis. No specimens collected. - Gastric ulcers with clean base. Treated with thermal EGD REPORT [place] [address] [facility] [place]. [address] NAME: BART NOE : 45 STATUS : ADM IN [facility]#: [id number] AGE: 70 ADM/REG DATE : 12/10/16 MR#: [id number] REPORT SERV DATE: 12/12/16 DICTATED BY: BA HARDEN DATE: 12/12/16 REPORT STATUS : Draft TRANSCRIBED BY: [employer] DATE: 12/12/16 therapy. - Duodenitis. Biopsied. Recommendation: - Return patient to [facility] for ongoing care. - Use Protonix (pantoprazole) 40 mg PO BID for 8 weeks. - No aspirin, ibuprofen, naproxen, or other non-steroidal anti-inflammatory drugs. - Follow an antireflux regimen. - Await pathology results. - Return to GI clinic in 4 weeks. - Clear liquid diet. Procedure Code(s): --- Professional --- 36755, 59, Esophagogastroduodenoscopy, flexible, transoral; with control of bleeding, any method Diagnosis Code(s): --- Professional --- K21.0, Gastro-esophageal reflux disease with esophagitis K44.9, Diaphragmatic hernia without obstruction or gangrene K29.70, Gastritis, unspecified, without bleeding K25.9, Gastric ulcer, unspecified as acute or chronic, without hemorrhage or perforation K29.80, Duodenitis without bleeding D62, Acute posthemorrhagic anemia K92.1, Melena CPT copyright 2013 [employer]. All rights reserved. The codes documented in this report are preliminary and upon hopper filler review may be revised to meet current compliance requirements. BA HARDEN, 12/12/2016 12:20 PM This report has been signed electronically. Number of Addenda: 0 Note Initiated On: 12/12/2016 10:06 AM Scope Withdrawal Time 0 hours 0 minutes 0 seconds [address] [place] [address]
--- NOTE | ~2016-12-10 | DS ---
Discharge Summary [facility] [address] [place]. [address] NAME: EMILY NOE : [birth year] STATUS : ADM IN PAT#: [id number] AGE: 70 ADM/REG DATE : 12/10/16 MR#: [id number] REPORT SERV DATE: 12/13/16 DICTATED BY: DEEJAY MENDEZCHATA GEECAMELIA DATE: 12/13/16 REPORT STATUS : Draft TRANSCRIBED BY: MODL DATE: 12/13/16 ADMISSION DATE: 12/10/2016 DISCHARGE DATE: 12/13/2016 DISCHARGE DIAGNOSES: 1. Acute upper GI bleed secondary to multiple gastric ulcers. 2. Esophagitis. 3. NSAID use. 4. Normocytic anemia. 5. History of alcohol abuse. 6. ITP. 7. Acute kidney injury on chronic kidney disease stage 3. 8. History of rheumatoid arthritis and gout. 9. Hypertension. 10.History of B[place]RE[place]. 11.History of nonmalignant gastric polyps and partial gastrectomy. CONSULTS: Dr. Mcarthur with GI. PROCEDURES: EGD showing LA grade B reflux esophagitis, hiatal hernia, gastritis, and four gastric ulcers, treated with thermal therapy, as well as duodenitis, which is biopsied. BRIEF HISTORY OF PRESENT ILLNESS: The patient is a 70-year-old male with the above history, who presented to [facility] due to melena and nausea. For detailed history and physical examination, please see Dr. Soriano's note from 12/10/2016. HOSPITAL COURSE: On admission, the patient's hemoglobin was 12.5, which trended down and then remained stable around 10. His platelets have also been hanging around 75. He was started on PPI drip and his abdominal x-rays were normal. Dr. Mcarthur was consulted and subsequently took the patient for EGD with the above-mentioned results. It seems likely his ulcers were exacerbated by recent use of Aleve, and the patient was educated to discontinue this. He will also be on Protonix b.i.d. for the next eight weeks and continue his Carafate. His bleeding has stopped, hemoglobin is stable, and otherwise, his current medical conditions are stable. He is continued on his home medications. His blood pressure was elevated and started on amlodipine. DISCHARGE MEDICATIONS: 1. Allopurinol 100 mg p.o. daily. 2. Norvasc 10 mg p.o. daily. 3. Protonix 40 mg p.o. b.i.d. 4. [place] 5/325 mg p.o. q.4 hours p.r.n. pain. 5. Carafate 1 g p.o. t.i.d. 6. Tylenol 650, 1300 mg p.o. q.6 hours p.r.n. pain. DISCHARGE INSTRUCTIONS: The patient will follow up with Dr. Zhao as earliest convenience. Discharge Summary [address] [address] NAME: EMILY NOE : 45 STATUS : ADM IN PAT#: [id number] AGE: 70 ADM/REG DATE : 12/10/16 MR#: [id number] REPORT SERV DATE: 12/13/16 DICTATED BY: CHATA VILLALBA II DATE: 12/13/16 REPORT STATUS : Draft TRANSCRIBED BY: MICHELL DATE: 12/13/16 DICTATED BY: MD KESHAWN Soliz II/MICHELL Chata Villalba II, MD / [id number] CC: Chata Villalba II, MD
[~2016-12-10 15:19] MED LIST changes: +ALEVE220 MG PO
[2016-12-10 16:00] LABS: BASOPHILS 0.1 %; BASOPHILS ABSOLUTE 0.01 10/3/uL (0.0-0.16); EOSINOPHILS 0 %; IMMATURE GRANULOCYTES 0.2 %; IMMATURE GRANULOCYTES ABSOLUTE 0.02 10/3/uL (0.0-0.11); LYMPHOCYTES 7.4 %; MEAN CORPUS HGB CONC 32.5 g/dL (32.0-36.0); MEAN PLATELET VOLUME 8.9 fL (9.2-13.0); MONOCYTES 3.7 %; NEUTROPHILS 88.6 %; NEUTROPHILS ABSOLUTE 7.13 10/3/uL (2.02-8.40); PLATELET COUNT 119 10/3/uL (150-400); RBC DISTRIBUTION WIDTH 15.9 % (12.0-16.0)
[2016-12-10 16:01] LABS: ER CBC TAT 0 Hrs 05 Mins; HEMATOCRIT 38.5 % (40.0-51.0); HEMOGLOBIN 12.5 g/dL (13.6-17.8); MANUAL DIFF NO %; MEAN CORPUSCULAR HEMOGLOB 29.1 pg (26.0-34.0); MEAN CORPUSCULAR VOLUME 89.5 fL (80-100); WHITE BLOOD CELLS 8.1 10/3/uL (4.5-10.5)
[2016-12-10 16:12] LABS: INTERNATIONAL NORMAL RATI 1.1 UNITS (-); PARTIAL THROMBO TIME 30.8 SEC (22.5-37.2); PROTIME (NOT ORD) 13.9 SEC (12.0-14.5)
[2016-12-10 16:15] LABS: A/G RATIO 0.6 (0.7-1.9); ALBUMIN 3.4 G/DL (3.5-5.0); ALKALINE PHOSPHATASE 133 U/L (45-117); BUN (BLOOD UREA NITROGEN) 28 MG/DL (6-23); CALCIUM, SERUM 9.5 MG/DL (8.5-10.4); CHLORIDE, SERUM 103 MMOL/L (96-112); CO2 (CARBON DIOXIDE) 22 MMOL/L (24-34); CREATININE 1.67 MG/DL (0.70-1.30); GFR AFRICAN AMERICAN 47 ML/MIN (>=60); GFR NON AFRICAN AMERICAN 41 ML/MIN (>=60); GLOBULIN 5.4 G/DL (2.5-4.1); GLUCOSE, SERUM 84 MG/DL (60-99); POTASSIUM, SERUM 4.3 MMOL/L (3.5-5.3); SGOT(AST) 64 U/L (5-40); SGPT(ALT) 22 U/L (5-65); SODIUM, SERUM 141 MMOL/L (135-148); TOTAL PROTEIN 8.8 G/DL (6.0-8.5)
[2016-12-10] MEDS ORDERED: NORCO1 TA1 PO (16:38)
[2016-12-10] MEDS ORDERED: SUCR PO (16:38)
[2016-12-10] MEDS ORDERED: Z100 PO (16:39)
[2016-12-10] MEDS ORDERED: 8 HOUR650 MG PO (16:40)
[2016-12-10 16:43] LABS: TROPONIN I <0.02 NG/ML (<0.05)
[2016-12-10 22:08] LABS: HEMATOCRIT 34.4 % (40.0-51.0); HEMOGLOBIN 11.2 g/dL (13.6-17.8)
[2016-12-11 04:34] LABS: BASOPHILS 0.2 %; BASOPHILS ABSOLUTE 0.01 10/3/uL (0.0-0.16); EOSINOPHILS 0.4 %; EOSINOPHILS ABSOLUTE 0.02 10/3/uL (0.0-0.53); HEMATOCRIT 31.3 % (40.0-51.0); HEMOGLOBIN 10.3 g/dL (13.6-17.8); IMMATURE GRANULOCYTES 0.4 %; IMMATURE GRANULOCYTES ABSOLUTE 0.02 10/3/uL (0.0-0.11); LYMPHOCYTES 13.5 %; LYMPHOCYTES ABSOLUTE 0.69 10/3/uL (0.67-4.30); MEAN CORPUS HGB CONC 32.9 g/dL (32.0-36.0); MEAN CORPUSCULAR HEMOGLOB 29.2 pg (26.0-34.0); MEAN CORPUSCULAR VOLUME 88.7 fL (80-100); MEAN PLATELET VOLUME 9.2 fL (9.2-13.0); MONOCYTES 8.4 %; MONOCYTES ABSOLUTE 0.43 10/3/uL (0.21-1.20); NEUTROPHILS 77.1 %; NEUTROPHILS ABSOLUTE 3.93 10/3/uL (2.02-8.40); PLATELET COUNT 97 10/3/uL (150-400); RBC DISTRIBUTION WIDTH 15.9 % (12.0-16.0); RED CELL COUNT 3.53 10/6/uL (4.7-6.1); WHITE BLOOD CELLS 5.1 10/3/uL (4.5-10.5)
[2016-12-11 04:36] LABS: MANUAL DIFF NO %
[2016-12-11 04:45] LABS: BUN (BLOOD UREA NITROGEN) 30 MG/DL (6-23); CALCIUM, SERUM 8.7 MG/DL (8.5-10.4); CHLORIDE, SERUM 105 MMOL/L (96-112); CREATININE 1.87 MG/DL (0.70-1.30); GFR AFRICAN AMERICAN 41 ML/MIN (>=60); GFR NON AFRICAN AMERICAN 36 ML/MIN (>=60); GLUCOSE, SERUM 82 MG/DL (60-99); POTASSIUM, SERUM 3.5 MMOL/L (3.5-5.3); SODIUM, SERUM 141 MMOL/L (135-148)
[2016-12-11 04:46] LABS: CO2 (CARBON DIOXIDE) 28 MMOL/L (24-34)
[2016-12-11 10:19] LABS: HEMATOCRIT 31.7 % (40.0-51.0); HEMOGLOBIN 10.5 g/dL (13.6-17.8)
[2016-12-11 16:24] LABS: HEMATOCRIT 30.8 % (40.0-51.0); HEMOGLOBIN 10.1 g/dL (13.6-17.8)
[2016-12-11 22:59] LABS: HEMATOCRIT 30.9 % (40.0-51.0); HEMOGLOBIN 10.1 g/dL (13.6-17.8)
[2016-12-12 06:45] LABS: BASOPHILS 0 %; EOSINOPHILS 0.6 %; EOSINOPHILS ABSOLUTE 0.02 10/3/uL (0.0-0.53); HEMATOCRIT 33.3 % (40.0-51.0); HEMOGLOBIN 10.7 g/dL (13.6-17.8); IMMATURE GRANULOCYTES 0.6 %; IMMATURE GRANULOCYTES ABSOLUTE 0.02 10/3/uL (0.0-0.11); LYMPHOCYTES 15.8 %; LYMPHOCYTES ABSOLUTE 0.53 10/3/uL (0.67-4.30); MEAN CORPUS HGB CONC 32.1 g/dL (32.0-36.0); MEAN CORPUSCULAR HEMOGLOB 29.5 pg (26.0-34.0); MEAN PLATELET VOLUME 9.5 fL (9.2-13.0); MONOCYTES 8.6 %; MONOCYTES ABSOLUTE 0.29 10/3/uL (0.21-1.20); NEUTROPHILS 74.4 %; PLATELET COUNT 74 10/3/uL (150-400); RBC DISTRIBUTION WIDTH 15.7 % (12.0-16.0); RED CELL COUNT 3.63 10/6/uL (4.7-6.1); WHITE BLOOD CELLS 3.4 10/3/uL (4.5-10.5)
[2016-12-12 06:49] LABS: CALCIUM, SERUM 8.3 MG/DL (8.5-10.4); CHLORIDE, SERUM 104 MMOL/L (96-112); CO2 (CARBON DIOXIDE) 25 MMOL/L (24-34); CREATININE 1.66 MG/DL (0.70-1.30); GFR AFRICAN AMERICAN 48 ML/MIN (>=60); GFR NON AFRICAN AMERICAN 41 ML/MIN (>=60); GLUCOSE, SERUM 86 MG/DL (60-99); POTASSIUM, SERUM 3.5 MMOL/L (3.5-5.3); SODIUM, SERUM 136 MMOL/L (135-148)
[2016-12-12 06:51] LABS: ALBUMIN 2.4 G/DL (3.5-5.0); BUN (BLOOD UREA NITROGEN) 23 MG/DL (6-23); MANUAL DIFF NO %; MEAN CORPUSCULAR VOLUME 91.7 fL (80-100); PHOSPHORUS, SERUM 2.5 MG/DL (2.5-4.5)
[2016-12-12 07:21] LABS: PLATELET ESTIMATE DEC (ADEQUATE); RBC MORPHOLOGY NORM (NORMAL)
[2016-12-12 10:16] LABS: HEMATOCRIT 31.4 % (40.0-51.0); HEMOGLOBIN 10.2 g/dL (13.6-17.8)
[2016-12-12 16:08] LABS: HEMATOCRIT 30.6 % (40.0-51.0); HEMOGLOBIN 9.9 g/dL (13.6-17.8)
[2016-12-12 22:57] LABS: HEMATOCRIT 31.3 % (40.0-51.0); HEMOGLOBIN 10.4 g/dL (13.6-17.8)
[2016-12-13 05:15] LABS: BASOPHILS 0.2 %; BASOPHILS ABSOLUTE 0.01 10/3/uL (0.0-0.16); EOSINOPHILS 0.6 %; EOSINOPHILS ABSOLUTE 0.03 10/3/uL (0.0-0.53); HEMOGLOBIN 10.2 g/dL (13.6-17.8); IMMATURE GRANULOCYTES 0.2 %; IMMATURE GRANULOCYTES ABSOLUTE 0.01 10/3/uL (0.0-0.11); LYMPHOCYTES 13.1 %; LYMPHOCYTES ABSOLUTE 0.64 10/3/uL (0.67-4.30); MEAN CORPUS HGB CONC 32.9 g/dL (32.0-36.0); MEAN CORPUSCULAR HEMOGLOB 29.5 pg (26.0-34.0); MEAN CORPUSCULAR VOLUME 89.6 fL (80-100); MEAN PLATELET VOLUME 9.3 fL (9.2-13.0); MONOCYTES 8.2 %; NEUTROPHILS 77.7 %; PLATELET COUNT 75 10/3/uL (150-400); RBC DISTRIBUTION WIDTH 15.5 % (12.0-16.0); RED CELL COUNT 3.46 10/6/uL (4.7-6.1)
[2016-12-13 05:17] LABS: MANUAL DIFF NO %; WHITE BLOOD CELLS 4.9 10/3/uL (4.5-10.5)
[2016-12-13 05:27] LABS: BUN (BLOOD UREA NITROGEN) 17 MG/DL (6-23); CALCIUM, SERUM 8.1 MG/DL (8.5-10.4); CHLORIDE, SERUM 107 MMOL/L (96-112); CO2 (CARBON DIOXIDE) 28 MMOL/L (24-34); CREATININE 1.48 MG/DL (0.70-1.30); GFR AFRICAN AMERICAN 55 ML/MIN (>=60); GFR NON AFRICAN AMERICAN 47 ML/MIN (>=60); GLUCOSE, SERUM 98 MG/DL (60-99); PHOSPHORUS, SERUM 2.3 MG/DL (2.5-4.5); POTASSIUM, SERUM 3.5 MMOL/L (3.5-5.3); SODIUM, SERUM 142 MMOL/L (135-148)
[2016-12-13 10:44] LABS: HEMATOCRIT 32.1 % (40.0-51.0); HEMOGLOBIN 10.7 g/dL (13.6-17.8)
[2016-12-13] MEDS ORDERED: NORV10 PO (14:54)
[2016-12-13] MEDS ORDERED: PROTONIX PO (14:54)
[2017-03-22] MEDS ORDERED: 8 HOUR650 MG PO (23:01)
[2017-03-24] MEDS ORDERED: NORV10 PO (16:29)
[2017-03-24] MEDS ORDERED: B1100 PO (16:30)
== END 2016-12-13 17:47 | disposition home or self-care (01) | DRG 378 ==
LOC: ER 15:19 → 7NO 19:43
PROVIDERS: Emergency Medicine; Hospitalist; Internal Medicine Gastroenterology
PROC: 0DB98ZX Excision of Duodenum, Via Natural or Artificial Opening Endoscopic, Diagnostic (ICD-10-PCS; principal; 2016-12-12 12:01)
DX: K25.4 Chronic or unspecified gastric ulcer with hemorrhage (principal); N18.4 Chronic kidney disease, stage 4 (severe); D69.3 Immune thrombocytopenic purpura; N17.9 Acute kidney failure, unspecified; D64.9 Anemia, unspecified; F10.10 Alcohol abuse, uncomplicated; I12.9 Hypertensive chronic kidney disease with stage 1 through stage 4 chronic kidney disease, or unspecified chronic kidney disease; Z86.010 Personal history of colon polyps; K21.0 Gastro-esophageal reflux disease with esophagitis; K44.9 Diaphragmatic hernia without obstruction or gangrene; Z79.1 Long term (current) use of non-steroidal anti-inflammatories (NSAID)
CPT/HCPCS: 36415; 74022; 80048; 80053; 80069; 82962; 83735; 84100; 84484; 85014; 85018; 85025; 85610; 85730; 86850; 86900; 86901; 86920; 88305; 93005; 96365; 96366; 96375; 99285; A9270-GY; C9113; J1170; J2405